=== PATIENT | female | born 1965 | race Caucasian/White ===

== ENCOUNTER 2016-04-03 23:14 | Emergency (ER) | payer SELFPAY ==
[2016-04-03 23:22] VITALS: BP 123/83; PULSE 108; TEMP 97.7; BMI 26.9
--- NOTE | 2016-04-04 00:09 | EDPRACDOC ---
- General Information Chief Complaint: Foot Pain Stated Complaint: RT FOOT PAIN Time Seen by Provider: 04/03/16 23:58 Information Source: Patient Home Medications: Home Medications Hydrocodone Bit/Acetaminophen [Hydrocodon-Acetaminophen 5-325] 1 tab PO Q4H PRN #10 tab 04/04/16 Allergies/Adverse Reactions: Allergies Allergy/AdvReac Type Severity Reaction Status Date / Time cephalexin monohydrate Allergy Intermediate RASH/VOMITI Verified 04/03/16 23:21 [From Keflex] NG ciprofloxacin [From Cipro] Allergy Intermediate RASH/VOMITI Verified 04/03/16 23 :21 NG ciprofloxacin HCl Allergy Intermediate RASH/VOMITI Verified 04/03/16 23:21 [From Cipro] NG guaifenesin [Guaifenesin] Allergy Intermediate HIVES RASH Verified 04/03/16 23: 21 AND VOMITING Penicillins Allergy Mild HIVES Verified 04/03/16 23:21 Sulfa (Sulfonamide AdvReac Mild Nausea only Verified 04/03/16 23:21 Antibiotics) - History of Present Illness Onset: 4 DAYS HPI: ABOUT A YEAR AGO PT INJURED RIGHT FOOT. STEPPED ON IT WRONG NEW , RE -INJURED. PAIN 10/10. MUSCLE SPASM PAIN, SHOOTING PAIN. 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, CERVICAL, UTERINE) Surgical History: Reports: Hysterectomy - Social Medical History Smoking Status: Heavy tobacco smoker (5 or more cigarettes/day or daily pipe/ cigar) - Physical Exam Constitutional: Alert (Awake), No apparent distress Oriented to: Time, Person, Place Last recorded Vital Signs: Last Vital Signs Temp 97.7 F 04/03/16 23:17 Pulse 108 04/03/16 23:17 Resp 18 04/03/16 23:17 BP 123/83 04/03/16 23:17 Pulse Ox 98 04/03/16 23:17 Oxygen Pulse Oxygen Saturation 98 O2 Device Room Air Oxygen Flow Rate Fraction of Inspired Oxygen ( FIO2) - HEENT Head: Normal ( normocephalic) Eye Exam: Normal (PERRL, EOMI, Sclera white) Oropharynx: Normal (Pharynx:Moist without exudate,Gums-no swelling) Nose: No Symptoms Reported (septum midline) Neck: Normal (FROM, trachea at midline) - Respiratory/Cardiovascular Respiratory: Normal - CTA (BBS clear to auscultation without adventitious sounds ) Cardiovascular: Normal (RRR without murmur, gallop or rub) - GI Auscultation: Normal (NABS) Palpation: Normal (Soft,No rebound or guarding, non distended) Tenderness: Non tender White's Sign: Negative - Musculoskeletal Back: Normal (Non-Tender) Extremities: Normal (Normal tone, Pulses 2+ No cyanosis or edema, FROM) - Integumentary Skin: Normal, Warm, Dry Lymphatics: Normal (no adenopathy) - Neurologic Memory Impaired: Normal Motor Function: Normal (Normal tone, Pulses 2+ No cyanosis or edema, FROM) Cranial Nerve: Normal (CN II-X11 intact sensation, strength 5/5) Cerebellar: Normal Mood Description: Normal Perception: Normal ED Foot Problem Phys Exam - Musculoskeletal Foot: Other (RIGHT LATERAL FOOT INFERIOR TO LATERAL MALLEOLUS VERY TTP. NO CREPITUS. NO ERYTHEMA.) Decision Time to Discharge: 01:18 - Departure Yes I personally saw and evaluated the patient. Disposition: Home Condition: Stable Final Diagnosis: Right foot pain Instructions: RICE: Routine Care for Injuries Education/Counseling Given To: Patient Education/Counseling Given Regarding: Diagnosis Referrals: None,No Provider [Primary Care Provider] - One Week Prescriptions: Hydrocodone Bit/Acetaminophen [Hydrocodon-Acetaminophen 5-325] 1 tab PO Q4H PRN #10 tab PRN Reason: Pain
[2016-04-04] MEDS ORDERED: OXYCODONE HCL 5 MG TABLET PO ONE (00:59)
--- NOTE | 2016-04-04 01:13 | DIRPT ---
CLINICAL DATA: Right lateral foot pain. Injury 4 days prior. Injury 1 year prior as well. EXAM: RIGHT FOOT COMPLETE - 3+ VIEW COMPARISON: 11/17/2015 FINDINGS: No fracture or dislocation. The alignment and joint spaces are maintained. Plantar calcaneal spur is again seen. There is a small os navicular. No focal soft tissue abnormality. IMPRESSION: No acute fracture or subluxation of the right foot. Plantar calcaneal spur again seen. Electronically Signed By: Glory Gallo M.D. On: 04/04/2016 01:10
== END 2016-04-04 01:28 | disposition home or self-care (01) ==
LOC: ED 23:14
DX: M79.671 Pain in right foot (principal)
CPT/HCPCS: 73630; 99283; J3490